=== PATIENT | male | born 1985 | race Caucasian/White ===

== ENCOUNTER 2017-06-14 10:00 | Inpatient (IN) | payer MEDICARE, OTHER ==
[~2017-06-14] VITALS: Ht 180.3 cm; Wt 76.2 kg
--- NOTE | ~2017-06-14 | PN ---
Unit #: [id number] #: [id number] Patient: PERRY ARVIZU JR [id number] [facility] [address] [place] [address] [id number] I MR#: [id number] NAME: PERRY ARVIZU JR ROOM: P175 Age: 31 Sex: M Admission Date: 06/14/2017 : 1985 Attending Physician: Renée Zuñiga M.D. Admitting Physician: Renée Zuñiga M.D. Primary Care Physician: Terrell Doctor Not In System [facility] PROGRESS NOTES DATE 06/16/2017 DISCUSSION Mr. Arvizu is a 31-year-old white male who was seen today and chart was reviewed and case was discussed with the staff. He has been anxious, withdrawn and rather seclusive to himself. Meanwhile, he has been cooperative with treatment recommendations and has been taking medications and tolerating them fairly well with no reported side effects. MENTAL STATUS EXAMINATION Young white male who was casually dressed with fair personal hygiene and appears to be in some distress and discomfort. He was awake and alert on interaction with intact orientation. His mood was anxious with congruent affect. His speech is slow and goal-directed. He denies any suicidal or homicidal ideation. His insight and judgement remains slightly impaired. TREATMENT PLAN 1. Will continue on his current medications and treatment protocol. Will monitor his response to medications and make further adjustments as needed. 2. Will continue to follow up. Dictated by... Francis Kearney/saranya TD: 06/18/2017 08:07 JOB #: [id number] Unit #: [id number] #: [id number] Patient: PERRY ARVIZU JR [facility] PROGRESS NOTES Page 1 of 1 X Renée Zuñiga MD X PROGRESS NOTE
--- NOTE | ~2017-06-14 | PN ---
Unit #: [id number] #: [id number] Patient: PERRY ARVIZU JR [id number] [facility] [address] [place] [address] [id number] I MR#: [id number] NAME: PERRY ARVIZU JR ROOM: 75 Age: 31 Sex: M Admission Date: 06/14/2017 : 1985 Attending Physician: Renée Zuñiga M.D. Admitting Physician: Renée Zuñiga M.D. Primary Care Physician: Terrell Doctor Not In System [facility] PROGRESS NOTES DATE 06/17/2017 DISCUSSION Mr. Arvizu is a 31-year-old, white male who was seen today and chart was reviewed and case was discussed with the staff. He has been anxious, withdrawn, seclusive to himself and has been complaining of (1)____anxiety and distress, sleep and dysphoric mood and depressive symptoms though he has not shown any agitation or aggression. He has been taking medications and tolerating them fairly well with no reported side effects. MENTAL STATUS EXAM Young white male who was casually dressed with fair personal hygiene, appears to be in no acute distress or discomfort. He was awake and alert on interaction with intact orientation. His mood was anxious with congruent affect. His speech was slow and goal directed. He denies any suicidal or homicidal ideation. Also, denies any auditory or visual hallucinations. His insight and judgement remains slightly impaired. TREATMENT PLAN 1. We will continue him on his current medications and treatment protocol. We will monitor his response to the medication and make further adjustments as needed. 2. We will continue to follow up. Dictated by... Francis Kearney/nolan TD: 06/19/2017 05:33 JOB #: [id number] Unit #: [id number] #: [id number] Patient: PERRY ARVIZU JR PROGRESS NOTES Page 1 of 1 X Renée Zuñiga MD PROGRESS NOTE
--- NOTE | ~2017-06-14 | PN ---
Unit #: [id number] #: [id number] Patient: PERRY ARVIZU JR [id number] [facility] [address] [place] [address] [id number] I MR#: [id number] NAME: PERRY ARVIZU JR ROOM: 75 Age: 31 Sex: M Admission Date: 06/14/2017 : 1985 Attending Physician: Renée Zuñiga M.D. Admitting Physician: Renée Zuñiga M.D. Primary Care Physician: Terrell Doctor Not In System [facility] PROGRESS NOTES DATE OF SERVICE 06/15/2017 DISCUSSION Mr. Arvizu is a 31-year-old white male with mood disorder who was seen today. Chart was reviewed and case was discussed with staff. He was seen to be anxious, withdrawn, and seclusive to himself with blunted affect, minimal interaction, and dysphoric mood, and reports not feeling good and that he does not feel this medication has been working for him though he has not really been compliant with the medication before coming to the hospital. MENTAL STATUS EXAMINATION Young white male who is casually dressed with marginal personal hygiene and appears to be in no acute distress or discomfort. He was awake and alert on interaction with intact orientation. His mood is anxious with a congruent affect. Speech is slow and restricted in content. His thought processes were disorganized with some looseness of associations. His insight and judgment remain significantly impaired. TREATMENT PLAN 1. We will continue him on his current medications and treatment protocol. We will monitor his response to the medications and make further adjustments as needed. 2. We will continue to follow up. Dictated by... Francis Kearney/marielle TD: 06/15/2017 08:23 JOB #: [id number] Unit #: [id number] #: [id number] Patient: PERRY ARVIZU JR [facility] PROGRESS NOTES Page 1 of 1 X Renée Zuñiga MD PROGRESS NOTE
--- NOTE | ~2017-06-14 | DS ---
Unit #: [id number] #: [id number] Patient: [facility]U JR [id number] [facility] [address] [place] [address] [id number] I MR#: [id number] NAME: PERRY ARVIZU JR ROOM: P175 Age: 31 Sex: M Admission Date: 06/14/2017 : 1985 Discharge Date: 06/22/2017 Attending Physician: Renée Zuñiga M.D. Primary Care Physician: Generic Doctor Not In System DISCHARGE SUMMARY IDENTIFYING DATA Mr. Arvizu is a 31-year-old single disabled white male, who is a resident of [place], [place] and is known to us from previous encounters, self-referred to the hospital, and was recently discharged. HISTORY OF PRESENT ILLNESS Please see initial psychiatric evaluation for details. PAST PSYCHIATRIC HISTORY Please see initial psychiatric evaluation for details. PAST MEDICAL HISTORY Please see initial psychiatric evaluation for details. HOSPITAL COURSE The patient [facility] and was oriented to the hospital environment. Routine p.r.n. medications were initiated, and he was started back on his home medications including his Prozac, Zyprexa, and Lamictal, and trazodone was closely monitored. He was taking the medications regularly and he was tolerating them fairly well, and he was able to show a decent therapeutic response, and was willing to continue treatment on outpatient basis and as such it was decided that he will be kept on his current medications and will be discharged home and will continue treatment on outpatient basis. DISCHARGE DIAGNOSES Psychiatric: [place] I Bipolar disorder, most recent depressed, recurrent, moderate, with psychosis. Methamphetamine abuse, moderate. Cannabis abuse, moderate. [place] II [place] III None. [place] IV Moderate psychosocial stressors. [place] V DISCHARGE MEDICATIONS 1. Zyprexa 20 mg a day for bipolar 2. Prozac 20 mg a day for depression 3. Lamictal 25 mg a day for bipolar 4. Trazodone 100 mg at bedtime for sleep Unit #: [id number] #: [id number] Patient: PERRY ARVIZU JR CONDITION AT DISCHARGE Stable. PROGNOSIS Fair. Dictated by... Renée Zuñiga M.D. IAA/elvira TD: 06/22/2017 07:42 JOB #: [id number] DISCHARGE SUMMARY Page 1 of 1 X Renée Zuñiga MD DISCHARGE SUMMARY
--- NOTE | ~2017-06-14 | PN ---
Unit #: [id number] #: [id number] Patient: PERRY ARVIZU JR [id number] [facility] [address] [place] [address] [id number] I MR#: [id number] NAME: PERRY ARVIZU JR ROOM: 75 Age: 31 Sex: M Admission Date: 06/14/2017 : 1985 Attending Physician: Renée Zuñiga M.D. Admitting Physician: Renée Zuñiga M.D. Primary Care Physician: Terrell Doctor Not In System [facility] PROGRESS NOTES DATE OF SERVICE 06/19/2017 DISCUSSION Mr. Arvizu is a 31-year-old white male who was seen today. Chart was reviewed and case was discussed with the staff. He has been anxious and withdrawn though has not shown any agitation, irritability, or behavioral problems and has been cooperative with treatment recommendations and has been taking the medications and tolerating them fairly well with no reported side effects. MENTAL STATUS EXAMINATION Young white male who is casually dressed with fair personal hygiene, appears to be in no acute distress or discomfort. He was awake and alert on interaction with intact orientation. His mood is anxious with congruent affect. His speech is slow and goal-directed. He denies any suicidal or homicidal ideations and also denies any auditory or visual hallucinations. His insight and judgment remain slightly impaired. TREATMENT PLAN 1. We will continue him on his current medications and treatment protocol. We will monitor his response to the medications and make further adjustments as needed. 2. We will continue to follow up. Dictated by... Francis Kearney/marielle TD: 06/19/2017 12:40 JOB #: [id number] Unit #: [id number] #: [id number] Patient: PERRY ARVIZU JR [facility] PROGRESS NOTES Page 1 of 1 X Renée Zuñiga MD PROGRESS NOTE
--- NOTE | ~2017-06-14 | HP ---
Unit #: [id number] #: [id number] Patient: GUILLERMO ARVIZU JR [id number] [place] [address] [id number] I MR#: [id number] NAME: GUILLERMO ARVIZU JR ROOM: P175 Age: 31 Sex: M Admission Date: 06/14/2017 : 1985 Attending Physician: Renée Zuñiga M.D. Admitting Physician: Renée Zuñiga M.D. Primary Care Physician: Terrell Doctor Not In System HISTORY AND PHYSICAL HISTORY OF PRESENT ILLNESS Guillermo is a 31 year old admitted to [facility] because of his abuse of drugs, although he denies any drugs. His family reports that he is known to use multiple illicit drugs. PAST MEDICAL HISTORY Patient denies drug use but family reports poly-illicit substance abuse. PAST SURGICAL HISTORY Nothing reported. ALLERGIES Benadryl, paper tape. SOCIAL HISTORY Smokes 1/2 pack per day. Admits to using alcohol rarely and denies illicit drug use. FAMILY HISTORY Medically noncontributory. REVIEW OF SYSTEMS CONSTITUTIONAL: No fever or chills. HEENT: Denies any sore throat, ear pain or runny nose. CARDIOVASCULAR: Denies chest pain, irregular heart rhythm or palpitations. CHEST: Denies shortness of breath or cough. No hemoptysis. GASTROINTESTINAL: Denies nausea, vomiting, diarrhea or chronic constipation. ENDOCRINE: Denies history of increased thirst or urination. No recent significant weight loss or gain. GENITOURINARY: Denies dysuria, frequency, or hematuria. SKIN: Denies any rashes. HEMATOLOGIC: Denies history of increased bleeding or bruising. MUSCULOSKELETAL: Denies any hot, swollen joints. No generalized muscle pain. NEUROLOGIC: Denies problems with vision or speech. No frequent, severe headaches. No numbness, tingling or weakness in any extremities. Denies loss of bladder or bowel control. CURRENT MEDICATIONS 1. Desyrel 100 mg q.h.s. p.r.n. 2. Vistaril 50 mg q. 6 hours p.r.n. 3. Milk of Magnesia p.r.n. Unit #: [id number] #: [id number] Patient: GUILLERMO ARVIZU JR 4. Maalox p.r.n. 5. Tylenol p.r.n. 6. Lamictal 25 mg daily. 7. Zyprexa 20 mg daily. 8. Prozac 20 mg daily. 9. Nicotine patch 14 mg daily. PHYSICAL EXAMINATION GENERAL: Alert, well-nourished, in no apparent distress. VITAL SIGNS: Blood pressure 115/80, heart rate 82, respirations 16, temperature 98.6. WEIGHT: 168. HEIGHT: 5 feet 11 inches. SKIN: Warm and dry without rash or lesion. HEENT: Normocephalic. TMs not viewed. Oral and nasal passages clear. Conjunctivae clear. PERRLA. EOMs intact. NECK: Supple without lymphadenopathy or thyromegaly. HEART: Regular rate and rhythm without murmur. LUNGS: Clear. ABDOMEN: Soft, nontender. : Not done. EXTREMITIES: No evidence of cyanosis, clubbing or edema. Moves all without focal deficit. NEUROLOGICAL: Grossly within normal limits. Cranial Nerves: II: Visual roy are intact. III, IV AND : Extraocular movements are intact. Pupils are equal, round and reactive to light. V: Facial sensation is grossly normal. VII: Facial movements and expression are normal. VIII: Auditory acuity grossly intact. IX, X: Uvula is midline. Phonation is normal. XI: Patient shrugs shoulders and turns head normally. XII: Tongue protrudes in the midline. Sensory and Motor Function: Sensory and motor sensation is grossly normal. Motor: moves all extremities well. Coordination: Gait is normal. Deep Tendon Reflexes: Intact. IMPRESSION Psychiatric admission. RECOMMENDATIONS PSYCHIATRIC: Per psychiatrist. MEDICAL: See no contraindication to participate in facility's activities. MEDICAL PROGNOSIS Good. MEDICAL CONDITION Stable. Dictated by... Mariluz Mar P.A.-C. for Francis Boston/saranya TD: 06/15/2017 16:53 Unit #: [id number] #: [id number] Patient: GUILLERMO ARVIZU JR JOB #: [id number] HISTORY AND PHYSICAL Page 1 of 1 X Mariluz Mar HISTORY AND PHYSICAL
--- NOTE | ~2017-06-14 | PN ---
Unit #: [id number] #: [id number] Patient: PERRY ARVIZU JR [id number] [facility] [address] [place] [address] [id number] I MR#: [id number] NAME: PERRY ARVIZU JR ROOM: 75 Age: 31 Sex: M Admission Date: 06/14/2017 : 1985 Attending Physician: Renée Zuñiga M.D. Admitting Physician: Renée Zuñiga M.D. Primary Care Physician: Terrell Doctor Not In System [facility] PROGRESS NOTES DATE OF SERVICE 06/21/2017 DISCUSSION Mr. Arvizu is a 31-year-old white male who was seen today. Chart was reviewed and case was discussed with the staff. He has been anxious, withdrawn, and rather seclusive to himself. Meanwhile, he has been cooperative with treatment recommendations and has been taking the medications and tolerating them fairly well with no reported side effects. MENTAL STATUS EXAMINATION Young white male who is casually dressed with fair personal hygiene, appears to be in no acute distress or discomfort. The patient was awake and alert on interaction with intact orientation. His mood is anxious with congruent affect. His speech is slow and goal-directed. He denies any current suicidal or homicidal ideations and also denies any auditory or visual hallucinations. His insight and judgment remain slightly impaired. TREATMENT PLAN 1. We will continue him on his current medications and treatment protocol. We will monitor his response to the medications and make further adjustments as needed. 2. We will continue to follow up. Dictated by... Francis Kearney/marielle TD: 06/21/2017 08:42 JOB #: [id number] Unit #: [id number] #: [id number] Patient: PERRY ARVIZU JR [facility] PROGRESS NOTES Page 1 of 1 X Renée Zuñiga MD PROGRESS NOTE
--- NOTE | ~2017-06-14 | PN ---
Unit #: [id number] #: [id number] Patient: PERRY ARVIZU JR [id number] [facility] [address] [place] [address] [id number] I MR#: [id number] NAME: PERRY ARVIZU JR ROOM: 75 Age: 31 Sex: M Admission Date: 06/14/2017 : 1985 Attending Physician: Renée Zuñiga M.D. Admitting Physician: Renée Zuñiga M.D. Primary Care Physician: Terrell Doctor Not In System [facility] PROGRESS NOTES DATE OF SERVICE 06/20/2017 DISCUSSION Mr. Arvizu is a 31-year-old white male who was seen today. Chart was reviewed and case was discussed with the staff. She was seen to be lying in his bed and is anxious, withdrawn, unkempt, disheveled, and reports persistent anxiety though he also informed me that he was trying to go to long-term rehab level of care. We are working with his director social to see if he can go to [facility]. He has been compliant with treatment recommendation and has been taking the medications and tolerating them fairly well with no reported side effects. MENTAL STATUS EXAMINATION Young white male who is casually dressed with fair personal hygiene, appears to be in no acute distress or discomfort. The patient was awake and alert on interaction with intact orientation. His mood is anxious with congruent affect. His speech is slow and goal-directed. He denies any suicidal or homicidal ideations and also denies any auditory or visual hallucinations. His insight and judgment remain slightly impaired. TREATMENT PLAN 1. We will continue him on his current medications and treatment protocol. We will monitor his response to the medications and make further adjustments as needed. 2. We will continue to follow up. Dictated by... Renée Zuñiga M.D. IAA/bzg TD: 06/20/2017 10:29 JOB #: [id number] Unit #: [id number] #: [id number] Patient: PERRY ARVIZU JR PROGRESS NOTES Page 1 of 1 X Renée Zuñiga MD X PROGRESS NOTE
--- NOTE | ~2017-06-14 | PA ---
Unit #: [id number] #: [id number] Patient: PERRY ARVIZU JR [id number] [facility] [address] [place] [address] [id number] I MR#: [id number] NAME: PERRY ARVIZU JR ROOM: P175 Age: 31 Sex: M Admission Date: 06/14/2017 : 1985 Date of Assessment: Attending Physician: Renée Zuñiga M.D. Admitting Physician: Renée Zuñiga M.D. PSYCHIATRIC ASSESSMENT DATE OF SERVICE 06/14/2017. IDENTIFYING DATA Mr. Arvizu is a 31-year-old single disabled white male, who is a resident [place], [place], and is known to me from previous encounter, was self-referred to the hospital on a voluntary basis. CHIEF COMPLAINT "I'm not acting right, that is at least what my grandparents said, they brought me here." HISTORY OF PRESENT ILLNESS Mr. Arvizu is a 31-year-old white male, who was brought to the hospital by his grandparents and was seen to be anxious, withdrawn, unkempt, disheveled, disorganized, and stated "I woke up and I got brought here, so I don't know, I'm pissed off about it." The patient was seen to be nervously walking around and stated that he has been getting in trouble. The last night, the patient was in the room and he went and picked up the baby and went in the room with both of them babies at the same time, and was upset and wanted the babies for comfort and told grandfather there is a bomb in the house and told him that you needed to find the bomb and has not been eating or taking care of himself and has been pacing constantly throughout the day where he was caught doing donuts in the parking lot and he was reported to the police department and grandparents report that the patient has been in the [facility] and they let him go after 10 days, and grandparents report about one month ago the patient received a large sum of money and went to [place], and blew it on drugs. He was seen to be acutely psychotic with bizarre behavior and was seen to be a significant threat to himself and others, and as such, recommendation for inpatient level of care for safety and stabilization was made and the patient was stepped up to the inpatient unit. SUBSTANCE ABUSE HISTORY The patient dose have a history of substance abuse and dependence including cocaine and methamphetamine, but was refusing to answer any questions about substance abuse and as such, was seen to be a poor historian. PAST PSYCHIATRIC HISTORY The patient has had history of inpatient psychiatric hospitalization at different facilities including in a facility in [place] as well as [facility]. Review of the medical records indicate that Unit #: [id number] #: [id number] Patient: PERRY ARVIZU JR he has been diagnosed and treated for bipolar disorder with psychosis, supposed to be on Zyprexa, Prozac, Lamictal, but has been noncompliant with medication and as such, has been decompensating. PAST MEDICAL HISTORY No acute or chronic medical illnesses. ALLERGIES Benadryl. PERSONAL SOCIAL HISTORY A 31-year-old white male, who reports that he is single, disabled, and lives at home with his grandparents and 2 younger boys and has fairly decent social support system. MENTAL STATUS EXAMINATION Young white male who was casually dressed with fair personal hygiene, appears to be in no acute distress or discomfort. He was awake and alert on interaction with intact orientation to time, place, and person. His mood was anxious and depressed with a congruent affect. His speech was slow and restricted in content. His thought processes were disorganized with some looseness of associations and flight of ideas and paranoid ideations and delusional behavior. His insight and judgment remain significantly impaired. DIAGNOSTIC IMPRESSION Psychiatric: Bipolar disorder, most recent episode depressed, recurrent, moderate, with psychosis; methamphetamine abuse, moderate; cannabis abuse, moderate. Medical: None. Stressors: Moderate psychosocial stressors. TREATMENT PLAN 1. The patient has presented with history of mood disorder and psychosis and has been decompensating and will need inpatient hospitalization for safety and stabilization. We will start him back on his home medications. We will adjust the medications and monitor response. 2. Supportive therapy was provided to the patient. 3. Safe, structured, and nourishing environment will be provided. ESTIMATED LENGTH OF STAY 5 to 7 days. ABILITY TO HELP SELF Limited. WILLINGNESS TO HELP SELF The patient appears to be willing to help self. STRENGTHS 1. Communicative. 2. Cooperative. PROBLEMS 1. Chronic dysphoric symptoms. 2. Poor social support system. DISCHARGE CRITERIA This will be contingent upon the patient's ability to go through detox without having any significant withdrawal symptoms and his ability to show Unit #: [id number] #: [id number] Patient: PERRY ARVIZU JR resolution of his psychosis and his ability to stay safe to himself, particularly after discharge from the hospital. Dictated by... Francis Kearney/kush TD: 06/15/2017 06:56 JOB #: [id number] PSYCHIATRIC ASSESSMENT Page 1 of 1 X Renée Zuñiga MD X PSYCHIATRIC ASSESSMENT
--- NOTE | ~2017-06-14 | PN ---
Unit #: [id number] #: [id number] Patient: PERRY ARVIZU JR [id number] [facility] [address] [place] [address] [id number] I MR#: [id number] NAME: PERRY ARVIZU JR ROOM: 75 Age: 31 Sex: M Admission Date: 06/14/2017 : 1985 Attending Physician: Renée Zuñiga M.D. Admitting Physician: Renée Zuñiga M.D. Primary Care Physician: Terrell Doctor Not In System [facility] PROGRESS NOTES DATE OF SERVICE: 06/17/2017 SUBJECTIVE Mr. Arvizu is a 31-year-old white male who was seen today and chart was reviewed, and case was discussed with the staff. He has been anxious, withdrawn, and rather seclusive to himself. Meanwhile, he has been cooperative with treatment recommendations and has been taking the medications and tolerating them fairly well with no reported side effects. MENTAL STATUS EXAMINATION Young white male who was casually dressed with fair personal hygiene appears to be in no acute distress or discomfort. He was awake and alert on interaction with intact orientation. His mood was anxious. Speech was slow and goal directed. He denies any suicidal or homicidal ideation. His insight and judgment remain slightly impaired. TREATMENT PLAN 1. We will continue him on his current medications and treatment protocol. We will monitor his response to medications and make further adjustments as needed. 2. We will continue to follow up. Dictated by... Francis Kearney/kuhs TD: 06/17/2017 18:59 JOB #: [id number] [facility] PROGRESS NOTES Page 1 of 1 X Renée Zuñiga MD PROGRESS NOTE
[2017-06-15 10:10] LABS: ALBUMIN SERUM 3.9 g/dL (3.5-5.0); BILIRUBIN,TOTAL 1.3 mg/dL (0.2-2.0); CALCIUM SERUM 8.8 mg/dL (8.4-10.2); GLOM FILT RATE Estimated 100.6 mL/min (>60); PROTEIN TOTAL SERUM 6.3 g/dL (6.0-8.3)
[2017-06-15 10:12] LABS: BASOPHIL% 0.4 % (0-2.5); EOSINOPHIL# 0.1 X10e3 (0-0.7); EOSINOPHIL% 2.2 % (0.0-7.0); HEMATOCRIT 45.1 % (38.0-50.0); HEMOGLOBIN 15.4 gm/dL (13.0-16.0); LYMPHOCYTE# 2.7 X10e3 (1.0-3.5); LYMPHOCYTE% 55.4 % (17.0-45.0); MEAN CELL VOLUME 91.4 FL (83-96); MEAN CORPUSCULAR HEMOGLOBIN 31.1 PG (28-34); MEAN PLATELET VOLUME 9.1 FL (6.5-11.5); MONOCYTE# 0.4 X10e3 (0-1.0); MONOCYTE% 8.8 % (3.0-12.0); NEUTROPHIL# 1.6 X10e3 (1.5-7.1); NEUTROPHIL% 33.2 % (40-75); PLATELET COUNT 220 X10e3 (140-420); RED BLOOD COUNT 4.93 X10e (3.90-5.60); RED CELL DISTRIBUTION WIDTH 13.8 % (11.0-15.5); WHITE BLOOD COUNT 4.9 X10e3 (4.0-10.5)
[2017-06-15 10:22] LABS: DIFF IND YES
[2017-06-15 10:39] LABS: PLATELET ESTIMATE NORMAL (NORMAL); RBC NORMAL YES
[2017-06-17 13:58] LABS: URINE APPEARANCE CLOUDY; URINE BILIRUBIN NEG (NEG); URINE BLOOD NEG (NEG); URINE COLOR YELLOW; URINE GLUCOSE NEG (NEG); URINE KETONE NEG (NEG); URINE LEUKOCYTE ESTERASE NEG (NEG); URINE NITRATE NEG (NEG); URINE PH 8.5 (5-8); URINE PROTEIN NEG (NEG); URINE SPECIFIC GRAVITY 1.017 (1.003-1.035)
[2017-06-17 14:08] LABS: AMPHETAMINE NEG (NEG); BARBITURATES NEG (NEG); BENZODIAZEPINES NEG (NEG); COCAINE NEG (NEG); MARIJUANA POS (NEG); OPIATES NEG (NEG); TRICYCLIC ANTIDEPRESSANTS NEG (NEG); U METHADONE NEG (NEG)
== END 2017-06-22 13:10 | DRG 885 ==
LOC: P1E 12:09
PROVIDERS: Psychiatry & Neurology Psychiatry
PROC: HZ2ZZZZ Detoxification Services for Substance Abuse Treatment (ICD-10-PCS; principal; 2017-06-14)
DX: F31.32 Bipolar disorder, current episode depressed, moderate (principal); F15.10 Other stimulant abuse, uncomplicated; F29 Unspecified psychosis not due to a substance or known physiological condition; F17.210 Nicotine dependence, cigarettes, uncomplicated; F12.10 Cannabis abuse, uncomplicated
CPT/HCPCS: 80053; 80307; 81003; 85025